=== PATIENT | female | born 1955 | race Two or more races ===

== ENCOUNTER 2017-12-25 11:48 | Emergency (ER) | payer BC ==
[~2017-12-25] VITALS: Ht 160 cm; Wt 90.7 kg
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
[2017-12-25] MEDS ORDERED: MORPHINE SULFATE INJ 2 MG/ML DISP.SYRIN IM ONE (12:00)
[2017-12-25] MEDS ORDERED: MORPHINE SULFATE INJ 4 MG/ML DISP.SYRIN ONE (12:05)
[2017-12-25 12:10] LABS: BASOPHILS % (AUTO) 0.6 % (0.0-2.0); EOSINOPHILS % (AUTO) 2.2 % (0.0-6.0); HEMATOCRIT 29 % (33-45); HEMOGLOBIN 9.5 g/dL (11.5-14.8); LYMPHOCYTES # (AUTO) 1.3 /CMM (0.8-4.8); LYMPHOCYTES % (AUTO) 27.4 % (20.0-44.0); MEAN CORPUSCULAR HGB CONC 33 g/dl (31.0-36.0); MEAN CORPUSCULAR VOLUME 80 fL (82-100); MONOCYTES # (AUTO) 0.5 /CMM (0.1-1.30); MONOCYTES % (AUTO) 11.6 % (2.0-12.0); NEUTROPHILS # (AUTO) 2.7 /CMM (1.8-8.9); NEUTROPHILS % (AUTO) 58.2 % (43.0-81.0); PLATELET COUNT (AUTO) 499 /CMM (150-450); RDW COEFFICIENT OF VARIATION 14.1 (11.5-15.0); RED BLOOD CELL COUNT(AUTO) 3.64 MIL/uL (4.0-5.2); WHITE BLOOD COUNT (AUTO) 4.6 K/uL (4.3-11.0)
[2017-12-25 12:18] LABS: CALCIUM, SERUM 8.2 mg/dL (8.5-10.1); CREATININE 0.7 mg/dL (0.6-1.3); POTASSIUM 4.1 mmol/L (3.5-5.1)
[2017-12-25 12:22] LABS: INR 0.95 (0.85-1.15)
--- NOTE | 2017-12-25 12:29 | NUR ---
JIG WORKER AT BEDSIDE FOR X-RAY.
--- NOTE | 2017-12-25 12:35 | NUR ---
AWNING FRAME MAKER WHEELED PATIENT FOR CT SCAN EXAM.
[2017-12-25] MEDS ORDERED: IV NS 0.9% 250 ML IV ONE (12:53)
[2017-12-25] MEDS ORDERED: CT SWABBABLE VALVE TRANS SET 1 EA INFUS.SET MC ONE (12:53)
[2017-12-25] MEDS ORDERED: IOHEXOL-300 100 ML VIAL IV ONE (12:53)
[2017-12-25] MEDS ORDERED: ACETAMINOPHEN 325 MG TABLET PO ONE (13:00)
[2017-12-25] MEDS ORDERED: ACETAMINOPHEN 325 MG TABLET ONE (13:18)
[2017-12-25 14:23] VITALS: BP 146/62
--- NOTE | 2017-12-25 14:23 | NUR ---
Patient discharged to home in stable condition. Written and verbal after care instructions given. Patient verbalizes understanding of instruction.IV removed. Catheter intact and site benign. Pressure and 4x4 applied to site. No bleeding noted.
== END 2017-12-25 14:24 | disposition home or self-care (01) ==
LOC: ER 11:50
DX: S60.212A Contusion of left wrist, initial encounter (principal); S16.1XXA Strain of muscle, fascia and tendon at neck level, initial encounter; S50.812A Abrasion of left forearm, initial encounter; S09.8XXA Other specified injuries of head, initial encounter; S99.811A Other specified injuries of right ankle, initial encounter; S89.81XA Other specified injuries of right lower leg, initial encounter; Z88.1 Allergy status to other antibiotic agents; V43.52XA Car driver injured in collision with other type car in traffic accident, initial encounter; Y93.89 Activity, other specified; Y92.413 State road as the place of occurrence of the external cause; Y99.8 Other external cause status
CPT/HCPCS: 36415; 70450-TC; 72125-TC; 73110; 73564-TC; 73610-TC; 80048-TC; 85025-TC; 85730-TC; A4606; J2270; J7050; Q9967; Z7610